=== PATIENT | male | born 1960 | race Caucasian/White ===

== ENCOUNTER → 2021-04-16 14:03 | Outpatient (REF) | payer MEDICARE, MEDICAID, SELFPAY | LOC: ANHLAB 14:03 | PROVIDERS: PCP Family Medicine; Visit Provider Nurse Practitioner | DX: D49.2 Neoplasm of unspecified behavior of bone, soft tissue, and skin (principal) | CPT/HCPCS: 88305 ==

== ENCOUNTER 2022-01-04 12:21 | Emergency (ER) | payer MEDICARE, MEDICAID, SELFPAY ==
[2022-01-04] VITALS (25 sets, daily range): BP systolic 133–156; BP diastolic 66–80; PULSE 63–75; RESP 10–29; TEMP 36.9; O2SAT 94–96
--- NOTE | ~2022-01-04 | XR_ITS ---
EXAMINATION: XR chest 1V portable INDICATION: Cough, upper respiratory infection TECHNIQUE: Portable AP chest at 1240 hours COMPARISON: 12/24/2017 FINDINGS: There is subtle diffuse airspace opacities with more focal opacity seen in the right lung b ase. No pleural effusion or pneumothorax. The cardiomediastinal silhouette is normal. IMPRESSION: 1. Subtle diffuse opacities with more focal opacity seen in the right lung base, consistent with atel ectasis versus pneumonia. Reviewed, dictated and finalized at location A. IMPRESSION: 1. Subtle diffuse opacities with more focal opacity seen in the right lung base , consistent with atelectasis versus pneumonia.
--- NOTE | 2022-01-04 12:18 | ECG_ITS ---
Measurements Intervals [place] Rate: 65 P: 67 AK: 168 QRS: 39 QRSD: 104 T: 202 QT: 390 QTc: 406 Interpretive Statements SINUS RHYTHM Nonspecific ST and T-wave abnormality NO PREVIOUS ECG AVAILABLE FOR COMPARISON Electronically Signed On 01-05-2022 7:06:33 CDT by Matt Whitmore M.D.
[2022-01-04 12:39] LABS: Basophils Percent Auto 0.3 % (0.2-1.2); Eosinophils Absolute Auto 0.2 K/mm3 (0-0.3); Eosinophils Percent Auto 1.4 % (0-4.4); Hematocrit 38.3 % (42.0-52.0); Immature Granulocyte Absolute 0.07 K/mm3 (0.00-0.031); Immature Granulocyte Percent A 0.6 % (0-0.5); Lymphocytes Absolute Auto 1.12 K/mm3 (0.9-3.2); Lymphocytes Percent Auto 9.6 % (18.3-44.2); Mean Corpuscular HGB Conc 33.9 g/dl (32-36); Mean Corpuscular Hemoglobin 32.1 pg (26-34); Mean Corpuscular Volume 94.6 fl (80-100); Mean Platelet Volume 10.5 fl (7.4-10.4); Monocytes Absolute Auto 0.8 K/mm3 (0.1-0.6); Monocytes Percent Auto 6.9 % (2.6-8.5); Neutrophils Absolute Auto 9.5 K/mm3 (1.3-6.7); Neutrophils Percent Auto 81.2 % (45.5-73.1); Platelet Count Result 192 k/mm3 (150-375); Red Blood Count 4.05 M/mm3 (4.6-6.20); Red Cell Distribution Width 12.2 % (11.5-14.5); White Blood Count 11.7 K/mm3 (4.5-10.0)
[2022-01-04 12:57] LABS: Alanine Aminotransferase 40 U/L (6-50); Albumin Level 4.1 g/dL (3.5-5.1); Alkaline Phosphatase 83 U/L (38-126); Anion Gap 11 mmol/L (8-16); Aspartate Amino Transferase 38 U/L (17-59); Bilirubin,Total 0.7 mg/dL (0.2-1.3); Blood Urea Nitrogen 39 mg/dL (9-20); Calcium 8.9 mg/dL (8.4-10.2); Carbon Dioxide 24 mmol/L (22-30); Chloride 99 mmol/L (98-107); Estimated CRCL calculation 81 ml/min; Estimated Glomerular Filt Rate 57; Glucose 217 mg/dL (65-110); Potassium 3.8 mmol/L (3.4-5.0); Sodium 134 mmol/L (137-145)
[2022-01-04 13:21] LABS: Appearance Urine Clear (Clear); Bilirubin Urine Negative (Negative); Blood Urine 1+ (Negative); Color Urine Yellow (Yellow); Glucose Urine UA Trace mg/dL (Negative); Ketones Urine Negative (Negative); Leukocyte Esterase Ur Negative LEU/UL (Negative); Nitrate Urine Negative (Negative); Protein Urine 2+ mg/dL (Negative); Urobilinogen Urine 0.2 mg/dL (<2.0); pH Urine 5.5 (5.0-9.0)
--- NOTE | 2022-01-04 13:26 | ED.GENADULT ---
HPI - General Adult General Chief complaint: Unspecified <Isabel Chahal PA-C - Last Filed: 01/04/22 20:17> Stated complaint: NOT FEELING WELL - POSSIBLE INK EYE/URI <IDA Goodwin Last Filed: 01/04/22 20:17> Time Seen by Provider: 01/04/22 12:43 <Isabel Chahal PA-C - Last Filed: 01/04/22 20:17> Source: patient <IDA Goodwin Last Filed: 01/04/22 20:17> Mode of arrival: EMS <IDA Goodwin Last Filed: 01/04/22 20:17> Limitations: no limitations <IDA Goodwin Last Filed: 01/04/22 20:17> History of Present Illness HPI narrative: Patient is a 61-year-old legally blind male, who presents to the ED with multiple complaints. Patient reports he has been sick for the past 1 week, with bilateral ear pain, sinus pressure/congestion, rhinorrhea, productive cough. He has been seen several times at [facility] and was prescribed a Medrol Dosepak and antibiotic eardrops on 12/30. He reports his symptoms have since persisted. He also developed bilateral eye drainage a couple days ago. Reports chest wall and abdominal pain with coughing. No CP at rest. Positive chills/diaphoresis, but no documented fever. No recent nausea or vomiting. No difficulty breathing. No pain or burning with urination. <IDA Goodwin Last Filed: 01/04/22 20:17> Related Data Home medications: Home Medications Medication Instructions Recorded Confirmed acetaminophen 500 mg tablet 500 mg PO TID PRN 08/22/19 11/13/21 oxcarbazepine 300 mg tablet 300 mg PO .COMPLEX 08/22/19 11/13/21 (Trileptal) atorvastatin 10 mg tablet 10 mg PO DAILY 04/29/21 11/13/21 furosemide 20 mg tablet 20 mg PO QAM 04/29/21 11/13/21 baclofen 10 mg tablet 10 mg PO DAILY 10/07/21 11/13/21 brexpiprazole 2 mg tablet (Rexulti) 2 mg PO DAILY 11/26/21 <Isabel Chahal PA-C - Last Filed: 01/04/22 20:17> Allergies/adverse reactions: Allergies Allergy/AdvReac Type Severity Reaction Status Date / Time levofloxacin Allergy Intermediate Unknown Verified 11/13/21 15:07 gabapentin Allergy Unknown Unknown Verified 11/13/21 15:07 inositol Allergy Unknown Unknown Verified 11/13/21 15:07 morphine Allergy Unknown Unknown Verified 11/13/21 15:07 niacin Allergy Unknown Unknown Verified 11/13/21 15:07 niacinamide Allergy Unknown Unknown Verified 11/13/21 15:07 metformin AdvReac Severe Diarrhea Verified 11/13/21 15:07 ibuprofen AdvReac Mild upset Verified 11/13/21 15:07 stomach with high doses <Isabel Chahal PA-C - Last Filed: 01/04/22 20:17> Review of Systems Review of Systems: CONSTITUTIONAL: Reports chills/diaphoresis. Denies fever. EYES: Reports bilateral discharge. ENT: Reports sinus pressure, rhinorrhea, congestion, sore throat, bilateral otalgia. CARDIOVASCULAR: Reports chest wall pain w/ coughing. RESPIRATORY: Reports productive cough. Denies dyspnea. GASTROINTESTINAL: Reports diffuse ABD pain w/ coughing. Denies nausea, vomiting, or diarrhea. GENITOURINARY: Denies dysuria or hematuria. MUSCULOSKELETAL: Denies back pain. NEUROLOGIC: Denies headache, numbness, or weakness. <Isabel Chahal PA-C - Last Filed: 01/04/22 20:17> All systems reviewed & are unremarkable except as noted in HPI and below <Isabel Chahal PA-C - Last Filed: 01/04/22 20:17> [facility] Past Medical History Medical History: Medical History (Updated 01/05/22 @ 00:01 by Linwood Powers) Depression HTN (hypertension) Bsksbbia-pykr-Kfogy syndrome Legally blind Lumbar spondylosis <Isabel Chahal PA-C - Last Filed: 01/04/22 20:17> Surgical History Surgical History: Surgical History Cataract H/O knee surgery b/l knee replacement 2014 Hx of tonsillectomy Kidney stone <Isabel Chahal PA-C - Last Filed: 01/04/22 20:17> Family History Family History: Family History Sibling D
[2022-01-04 13:29] LABS: RBC Urine 0-2 /hpf (0-2); WBC Urine 0-3 /hpf
[2022-01-04 13:55] LABS: Add Urine Microscopic? YES
--- NOTE | 2022-01-04 15:00 | PC.NURSE ---
Pt reports relief of hearing loss after irrigation.
--- NOTE | 2022-01-15 17:00 | ED.GENADULT ---
HPI - General Adult General Chief complaint: Unspecified Stated complaint: NOT FEELING WELL - POSSIBLE INK EYE/URI Time Seen by Provider: 01/04/22 12:43 Source: patient Mode of arrival: EMS Limitations: no limitations Related Data Home Medications Medication Instructions Recorded Confirmed acetaminophen 500 mg tablet 500 mg PO TID PRN 08/22/19 01/08/22 oxcarbazepine 300 mg tablet 300 mg PO .COMPLEX 08/22/19 01/08/22 (Trileptal) atorvastatin 10 mg tablet 10 mg PO DAILY 04/29/21 01/08/22 furosemide 20 mg tablet 20 mg PO QAM 04/29/21 01/08/22 baclofen 10 mg tablet 10 mg PO DAILY 10/07/21 01/08/22 brexpiprazole 2 mg tablet (Rexulti) 2 mg PO DAILY 11/26/21 01/08/22 Allergies Allergy/AdvReac Type Severity Reaction Status Date / Time levofloxacin Allergy Intermediate Unknown Verified 01/08/22 13:06 gabapentin Allergy Unknown Unknown Verified 01/08/22 13:06 inositol Allergy Unknown Unknown Verified 01/08/22 13:06 morphine Allergy Unknown Unknown Verified 01/08/22 13:06 niacin Allergy Unknown Unknown Verified 01/08/22 13:06 niacinamide Allergy Unknown Unknown Verified 01/08/22 13:06 metformin AdvReac Severe Diarrhea Verified 01/08/22 13:06 ibuprofen AdvReac Mild upset Verified 01/08/22 13:06 stomach with high doses PMFSH Past Medical History Medical History Depression HTN (hypertension) Qplymoeh-ccjz-Yruqu syndrome Legally blind Lumbar spondylosis Surgical History Surgical History Cataract H/O knee surgery b/l knee replacement 2014 Hx of tonsillectomy Kidney stone Family History Family History Sibling Diabetes mellitus Hypertension Asthma Retinitis pigmentosa Wqwhbxyn-yiso-Lvbtc syndrome Father Asthma Family history of arthritis Malignant neoplasm of prostate Family history of cardiovascular disease Diabetes mellitus Mother Family history of cardiovascular disease Acute myocardial infarction, Onset Age: 65 Cerebrovascular accident Hypertension Heart disease Social History Social History Smoking status: Never smoker Second hand tobacco smoke exposure: No Alcohol intake: never Substance use: never Substance use type: does not use Gender identity (if verbalized by the patient): Male Spiritual care concerns: No Agree to blood products: Yes Course Vital Signs Vital signs: Vital Signs Temperature 98.5 F 01/04/22 11:27 Pulse Rate 75 01/04/22 11:27 Respiratory Rate 16 01/04/22 11:27 Blood Pressure 147/72 H 01/04/22 11:27 Pulse Oximetry 95 01/04/22 11:27 Oxygen Delivery Room Air 01/04/22 11:27 Temperature 98.5 F 01/04/22 11:27 Pulse Rate 70 01/04/22 14:17 Respiratory Rate 21 H 01/04/22 16:06 Blood Pressure 152/66 H 01/04/22 15:46 Pulse Oximetry 96 01/04/22 15:20 Oxygen Delivery Room Air 01/04/22 11:27 Medical Decision Making Vital Signs Vital Signs: Vital Signs Temperature 98.5 F 01/04/22 11:27 Pulse Rate 75 01/04/22 11:27 Respiratory Rate 16 01/04/22 11:27 Blood Pressure 147/72 H 01/04/22 11:27 Pulse Oximetry 95 01/04/22 11:27 Oxygen Delivery Room Air 01/04/22 11:27 Temperature 98.5 F 01/04/22 11:27 Pulse Rate 70 01/04/22 14:17 Respiratory Rate 21 H 01/04/22 16:06 Blood Pressure 152/66 H 01/04/22 15:46 Pulse Oximetry 96 01/04/22 15:20 Oxygen Delivery Room Air 01/04/22 11:27 Lab Data Result diagrams: 01/04/22 12:24 01/04/22 12:24 Labs: Lab Results 01/04/22 01/04/22 01/04/22 Range/Units 12:23 12:24 12:24 WBC 11.7 H (4.5-10.0) K/mm3 RBC 4.05 L (4.6-6.20) M/mm3 Hgb 13.0 L (14.0-18.0) g/dL Hct 38.3 L (42.0-52.0) % MCV 94.6 (80-100) fl MCH 32.1 (26-34) p
== END 2022-01-04 16:34 | disposition home or self-care (01) ==
PROVIDERS: Emergency Provider Emergency Medicine; PCP Family Medicine
DX: H60.93 Unspecified otitis externa, bilateral (principal); H66.93 Otitis media, unspecified, bilateral; H60.42 Cholesteatoma of left external ear; H10.89 Other conjunctivitis; I10 Essential (primary) hypertension; H54.8 Legal blindness, as defined in USA; F32.A Depression, unspecified; Z96.653 Presence of artificial knee joint, bilateral; Z98.49 Cataract extraction status, unspecified eye; R91.8 Other nonspecific abnormal finding of lung field; R94.31 Abnormal electrocardiogram [ECG] [EKG]
CPT/HCPCS: 36415; 69209; 71045; 80053; 81001; 85025; 93005; 99283

== ENCOUNTER 2023-12-15 14:15 | Outpatient (RCR) | payer MEDICARE, MEDICAID, SELFPAY ==
--- NOTE | 2023-09-18 18:47 | PTOPEVAL1 ---
Assessment and note entered by Elvira Snyder PT Evaluation Information Assessment Status Evaluation Diagnosis L and R shoulder lesions Therapy conditions pain in bilat shoulders cervicalgia cervical radiculopathy abnormal posture Subjective Information Pt reports his left is worse than the right. Pt reports he had neck surgery January 2023, states his pain has been since this point. Pt reports fusion of C5-6. States hasn't done what it should have done . Dr. Palacios at [facility], has had follow ups and x-rays showing the equipment is fine . Has trigger point injections in his neck and shoulder. States this last one did something to my shoulder . Pt reports shoulder was fine before last injection and had therapy that was a little rough thinks the last injection did something. Reports last shot was above the scapula and hurts below and above the scapula. Reports pain goes down arm and into the 5th and 4th fingers. goes down back of upper arm, through forearm, wrist, and fingers. Neck really hurts too in the back and sides of the neck. Pt had attended therapy at another facility and was referred to this physical therapy facility due to feeling he wasn't making progress States went to other facility a bunch of times for his neck after surgery. For his shoulders he had just started. Pt reports his pain medications are not helping enough. States is taking oxycodone with acetominophen 5/325. Pt reports takes 1-2 every 3 hours. Is not taking NSAIDs, took steroids for a while and that helped with the narcotics but ran out of them. 7 day supply. Ices his neck 3-4x a day maybe more. Reported Pain Level Pain Score 3,8,9: Self Report Assessment PT Clinical Summary Pt presents to evaluation with diagnosis of left and right shoulder lesions. Pt reports he had a cervical fusion of C5-6 in January 2023 and has had neck and shoulder pain since this point. He reports he has followed up with surgeon multiple times who has taken imaging an states the fusion
--- NOTE | 2023-09-18 18:48 | OPREHPOC ---
Outpatient Therapy Plan of Care This is a Multidisciplinary Plan of Care that may contain components documented by all disciplines (PT, OT, and ST.) PT Goal 1 Goal Pt will be independent in HEP Pt will verbalize understanding of diagnosis and prognosis Target Visit 6 PT Problem 2 PT Problem #2 Pain PT Goal 1 Goal Pt will report greatest pain level at 5/10 or less to improve ADLs and activities Target Visit 6 Comment Pt will report greatest pain level at 2/10 or less to improve ADLs and activities PT Goal 2 Target Visit 12 PT Problem 3 PT Problem #3 Impaired Range of Motion PT Goal 1 Goal Pt will demo improved cervical rotation bilat to 30 degrees Target Visit 12 PT Goal 2 Goal Pt will demo cervical extension of 15 degrees Target Visit 12 PT Problem 4 PT Problem #4 Impaired Endurance PT Goal 1 Goal Pt will demo improved forward head in sitting without cueing Target Visit 12
--- NOTE | 2023-10-07 16:42 | PTOPPROG ---
Assessment and note entered by Elvira Snyder, PT Assessment Status Reevaluation Diagnosis L and R shoulder lesions Therapy conditions pain in bilat shoulders cervicalgia cervical radiculopathy abnormal posture Subjective Information Reports heart was out of rhythm. States did not go through a cardioversion. Was in the hospital 4 days. States Is seeing Primary 2 days from now for follow up from hospitalization. He got home on Thursday. Pt reports heart a-fib was up and then slowed way down, then blood pressure shot up. Started on a new blood thinner and new blood pressure medicine. Did EKGs, x-rays, medications. Reports is starting to sleep again after being awakened in the night in the hospital. States LEFT arm is better than it was, that it is the more limiting arm. States had a fall before talking to referring provider, did not have another fall after that. Patient states he feels ok, just tired. Reports seeing Neurosurgeon 10/30/23 Assessment PT Clinical Summary Pt was able to attend one therapy session after evaluation then was hospitalized for unrelated diagnosis. Pt returns to therapy today stating centralization of LUE pain. Reports overall feels some better in the neck but that it still hurts. Was reevaluated today and demo's less UE ROM bilat and increased cervical rotation bilat compared to evaluation. Cont to report high pain levels as well with abnormal postures, decreased ROM cervical and thoracic spine, and (+) tone and tension cervical and thoracic muscles. Plan of Care Interventions Electrical Stimulation,Hot Pack/Cold Pack,Manual Therapy,Neuro Re-education,Patient/Caregiver Educati,Therapeutic Activities,Therapeutic Exercise,Self-Care/Home Management Other Interventions Taping PT Services Indicated Yes Treatment Frequency and 2x weekly x 12 weeks Duration These treatments will address the objective and functional deficits as defined above. The patient will be advanced safely and appropriately in order for the patient to progress towards his/her prior level of function. Additional exercises will be introduced and as well as a comprehensive home exercise program upon discharge, if needed, ?to ensure carryover of functional gains achieved in the clinic. This treatment plan has been reviewed and agreement upon by the patient.
--- NOTE | 2023-11-04 13:40 | PCPTNOTE ---
Patient called & cancelled scheduled appointment this date due to his transportation company cancelling his ride to his appointment due to staffing issues. Cancellation will not be counted against patient attendance.
--- NOTE | 2023-12-01 16:24 | PTOPPROG ---
Assessment and note entered by Elvira Snyder, PT Evaluation Information Assessment Status Progress report Diagnosis L and R shoulder lesions Therapy conditions pain in gaye shoulders cervicalgia cervical radiculopathy abnormal posture Onset 10/2022 Subjective Information Pt states maybe 40% improved overall States is able to lift right arm more than left arm, hurts but not enough to keep me from doing anything . States left fingers don't work and the pinky is kind of limp . Pt currently has a foster care case manager 3 days a week for half a day. Does most of his chores secondary to blindness Pt has been on and off prednisone and pain medication since last reevaluation. Had a recent myelography showing multiple levels of arthritic changes, shows no hardware complications, cervical spine straightening without subluxation, multilevel degenerative changes Pt has recently been on prednisone 10 days, finished this, and gave another 10 days on day one of this round. When is on prednisone it helps pain but continues to have pain in both arms. Is supposed to go see the ortho December 23. Neuro surgeon has not been scheduled yet, but is planning to schedule with him States left arm is getting a little better but not too much. Doesn't subside. Reports does the exercises and everything he can but it still bothers him. States this weekend pain started hurting on Thursday when was really hot outside. Pain in the left arm is going all the way down to the two fingers, states is the entrapment of the nerve. States in the beginning with the surgery they took bone spurs out and if they hadn't could have been paralyzed. States feels ok to do things but just not feeling that great . Sates the pain is about a 6 on the left but an 8 on the right today. Right side states is popping and cracking. Became worse than
--- NOTE | 2023-12-18 12:40 | PCPTNOTE ---
This treatment is being continued on visit number [id number]. Please see documentation on both accounts to view progress. Completed interventions, outcomes, and problems have been marked as Inactive to facilitate the copying of the Care plan routine for recurring accounts.
== END 2023-12-17 23:59 | disposition home or self-care (01) ==
LOC: ANHHIPT 14:15
PROVIDERS: PCP Family Medicine; Visit Provider Family Medicine
DX: M75.82 Other shoulder lesions, left shoulder (principal); M75.81 Other shoulder lesions, right shoulder
CPT/HCPCS: 97014; 97110; 97112; 97140; 97163; 97750; G0283

== ENCOUNTER 2024-01-07 14:00 | Outpatient (RCR) | payer MEDICARE, MEDICAID, SELFPAY ==
--- NOTE | 2023-12-18 12:39 | PCPTNOTE ---
The treatment documented on this account is a continuation of the treatment documented on visit number [id number]. Please see documentation on both accounts to view progress. The Plan of Care has been transitioned and updated within the new V#. I have addressed and agree with the discipline specific Problems, Interventions, and Goals for the current certification period. Completed interventions, outcomes, and problems have been marked as Inactive to facilitate the copying of the Care plan routine for recurring accounts.
--- NOTE | 2024-01-07 15:02 | PTOPDC ---
Assessment and note entered by Elvira Snyder, PT Assessment Status Discharge Diagnosis L and R shoulder lesions Therapy conditions abnormal postures cervical radiculopathy Onset 10/2022 Subjective Information Pt reports has nerve test in January and also a CT scan on neck in January. States is better, but left arm is still painful. Now has a knee that is popping when I stand up . Both left and right shoulder but right shoulder is not like the left one . States left hand is not working right. Prednisone helps some what, but has to sleep with a pillow under left arm. Left arm sometimes it works well, and sometimes it doesn't . Ortho MD provided steroid shots in the shoulders but the steroid shots didn't do anything in the shoulder joint. Pt states ices neck every day when it bothers him, once a day. States helps some while the ice is on there but then when you take the ice off it hurts again. Hurts to turn neck. Is sleeping with one pillow and not sleeping with head very high. Reports he usually does shoulder squeezes, sometimes does the stretches laying on his back depending on how tight the back is usually 2-3x / wk, the goal post does 2-3x daily, open book thoracic rotation once daily, tilting head side to side and turning neck and chin tucks a couple times a day, and stretching neck ear>shoulder. has a bone stimulator that has used 4 hours a day usually 2 hours at a time. Can't wear it 4 hours straight, and tries to get it done every single day. It's heavy and depends on how his neck is doing will do or not perform stimulator. Reported Pain Level Pain Score 6,8,7: Self Report Assessment PT Clinical Summary Pt has attended therapy consistently for neck pain and radiculopathy. Pt's reports of pain remain high in both shoulders, left upper arm, and neck. Pt appears focused on his pain and discomfort, stating he thinks something is wrong related to his neck surgery. He has received multiple doses of prescription prednisone through his plan of care from different providers which he reports improves pain. He had steroid shots in bilateral
== END 2024-01-12 09:46 | disposition home or self-care (01) ==
LOC: ANHHIPT 14:00
PROVIDERS: PCP Nurse Practitioner Family; Visit Provider Family Medicine
DX: M75.82 Other shoulder lesions, left shoulder (principal); M75.81 Other shoulder lesions, right shoulder
CPT/HCPCS: 97014; 97110; 97112; 97140; 97750; G0283

== ENCOUNTER 2024-04-28 10:45 | Outpatient (RCR) | payer MEDICARE, MEDICAID, SELFPAY ==
[2024-03-29 11:20] VITALS: BMI 36.1
[2024-04-07 13:30] VITALS: BMI 36.0
[2024-04-08 11:47] VITALS: BMI 36.0
== END 2024-06-27 09:24 | disposition home or self-care (01) ==
LOC: ANHDMC 10:45
PROVIDERS: PCP Family Medicine; Visit Provider Nurse Practitioner Family
DX: E11.65 Type 2 diabetes mellitus with hyperglycemia (principal); Z71.3 Dietary counseling and surveillance; Z71.89 Other specified counseling
CPT/HCPCS: 97802; 97803; G0108

== ENCOUNTER 2024-07-26 10:45 | Outpatient (RCR) | payer MEDICARE, MEDICAID, SELFPAY ==
[2024-07-11 10:05] VITALS: BMI 35.9
== END 2024-10-09 23:59 | disposition home or self-care (01) ==
LOC: ANHDMC 10:45
PROVIDERS: PCP Nurse Practitioner Family; Visit Provider Nurse Practitioner Family
DX: E11.65 Type 2 diabetes mellitus with hyperglycemia (principal); Z71.3 Dietary counseling and surveillance; Z71.89 Other specified counseling
CPT/HCPCS: 97803; G0108

== ENCOUNTER 2024-11-10 08:44 | Outpatient (CLI) | payer MEDICARE, MEDICAID, SELFPAY ==
--- NOTE | ~2024-11-10 | CT_ITS ---
EXAMINATION: CT sinus wo con DATE: 11/10/2024 09:05 INDICATION: Chronic sinusitis TECHNIQUE: Computed tomography (CT) of the paranasal sinuses was performed without intravenous contra st. The dose-length product was 331.73 mGy-cm. Automated exposure control and iterative reconstructio n technique were employed. COMPARISON: CT dated 01/05/2007 FINDINGS: There is a mucous retention cyst of the left maxillary antrum. There is leftward nasal sept al deviation. There is mild mucosal thickening of the maxillary sinuses. No air-fluid levels. No muco periosteal reaction. The ostiomeatal units are patent. There are bilateral mastoid effusions. IMPRESSION: 1. Mild sinus disease. 2: Leftward nasal septal deviation. 3: Bilateral mastoid effusions. Reviewed, dictated and finalized at location A.
--- OUTSIDE RECORDS SUMMARY | 2024-11-10 08:58 | XMS_ITS | Clinical Summary ---
Author Organization [facility] Address [address] [place] [address] Phone Care Team Providers Care Icu Specialist Name Role Phone Unavailable Primary Care Provider Unavailabl e Medications potassium chloride (KLOR-CON) 20 MEQ CR tablet 1 tab/cap qday 0 07/26/2017 Active aspirin (ST BRANNON) 81 MG EC tablet 1 tab/cap qday 0 07/26/2017 Active sertraline (ZOLOFT) 100 MG tablet 1 tab/cap qday 0 07/26/2017 Active lisinopril (PRINIVIL,ZESTRI L) 40 MG tablet 1 tab/cap qday 0 07/26/2017 Active raNITIdine (ZANTAC) 150 MG tablet 1 tab/cap qday 0 07/26/2017 Active fenofibrate micronized (LOFIBRA) 134 MG capsule 1 tab/cap qday 0 07/26/2017 Active indomethacin (INDOCIN) 25 MG capsule 1 tab/cap qday 0 07/26/2017 Active pregabalin (LYRICA) 75 MG capsule 1 tab/cap bid 0 07/26/2017 Active atorvastatin (LIPITOR) 10 MG tablet 1 tab/cap qday 0 07/26/2017 Active furosemide (LASIX) 40 MG tablet 1 tab/cap bid 0 07/26/2017 Active allopurinol (ZYLOPRIM) 300 MG tablet 1 tab/cap qday 0 07/26/2017 Active Active Problems Problem Noted Date Diagnosed Date Calculus of kidney 10/04/2017 Chronic kidney disease, stage 3 (moderate) 07/26 Gout 07/26/2017 Other hyperlipidemia 07/26/2017 Overview (09/25/2018): Converted unresolved ICD9, potential mismatch. Hypertensive chronic kidney disease with stage 1 through stage 4 chronic kidney disease, or unspecified chronic kidney disease 07/26/2017 Gastro-esophageal reflux disease without esophag itis 07/26/2017 Family History Medical History Relation Comments Kidney disease Neg Hx Kidney stone Neg Hx Social History Tobacco Use Types Packs/Day Years Used Date Smoking Tobacco: Never Alcohol Use Standard Drinks/Week Comments No 0 (1 standard drink = 0.6 oz pur e alcohol) Sex and Gender Information Value Date Recorded Sex Assigned at Not on file Legal Sex Male 10:04 AM MST Gender Identity Not on file Sexual Orientation Not on file Last Filed Vital Signs Vital Sign Reading Time Taken Comments Blood Pressure 138/72 02/18/2018 12:01 AM CDT Pulse - - Temperature 36.6 C (97.8 F) 02/18/2018 12:01 AM CDT Respiratory Rate - - Oxygen Saturation - - Inhaled Oxygen Concentration - - Weight 123 kg (272 lb) 02/18/2018 12:01 AM CDT Height 190.5 cm (6' 3 ) 02/18/2018 12:01 AM CDT Body Mass Index 34 02/18/2018 12:01 AM CDT Plan of Treatment Health Maintenance Due Date Last Done Comments Influenza Vaccine (Season Ended) 2025
--- OUTSIDE RECORDS SUMMARY | 2024-11-10 08:58 | XMS_ITS | Clinical Summary ---
Author Organization [facility] [address] Address [address] [place] [address] Care Team Providers Care News Broadcaster Name Role Phone Matt Campbell MD Primary Care Provider Allergies Active Allergy Reactions Criticality Noted Date Comments Gabapentin Unknown 03/02/2019 Ibuprofen Hives High 11/15/2016 Morphine Nausea and Vomiting Medium 11/15/2016 Niacin Hives High 02/15/2013 Medications allopurinoL (ZYLOPRIM) 300 mg tablet Take by mouth. 8 Active aspirin (ECOTRIN EC) 81 mg Tablet, Delayed Release (E.C.) Take by mouth. 8 Active atorvastatin (LIPITOR) 10 mg tablet Take by mouth. 8 Active OYSTER SHELL + D 250-125 mg-unit per tablet TAKE 1 TABLET BY MOUTH EVERY DAY 0 9 Active ergocalciferol (VITAMIN D2) 50,000 unit capsule TAKE 1 CAPSULE BY MOUTH ONCE WEEKLY ON THURSDAY 1 9 Active fenofibrate micronized (LOFIBRA) 134 mg Capsule Take by mouth. 8 Active furosemide (LASIX) 40 mg tablet Take by mouth. 8 Active HYDROcodone-ac etaminophen (NORCO) 5-325 mg tablet TAKE 1 TABLET BY MOUTH EVERY 6 HOURS NEEDED FOR PAIN. DO NOT EXCEED 4G OF ACETAMINOPHEN IN A DAY 0 9 Active indomethacin (INDOCIN) 25 mg capsule Take by mouth. 8 Active lisinopril (PRINIVIL) 40 mg tablet Take by mouth. 8 Active metFORMIN (GLUCOPHAGE) 500 mg tablet TAKE 1 TABLET BY MOUTH TWICE A DAY WITH MEALS 2 9 Active metoprolol tartrate (LOPRESSOR) 50 mg tablet TAKE 1 & 1/2 TABLETS BY MOUTH TWICE A DAY 2 9 Active OXcarbazepine (TRILEPTAL) 300 mg tablet TAKE 1 TABLET BY MOUTH TWICE A DAY 2 9 Active potassium chloride (KLOR-CON M20) 20 mEq Extended Release tablet Take by mouth. 8 Active pregabalin (LYRICA) 75 mg Capsule Take by mouth. 8 Active raNITIdine (ZANTAC) 150 mg tablet Take by mouth. 8 Active sertraline (ZOLOFT) 100 mg tablet Take by mouth. 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 Lumbar spondylosis 03/01/2019 Cervical spondylosis with myelopathy 03/01/2019 Family History Medical History Relation Name Comments Unknown Father Unknown Mother Unknown Sister x 2 Relation Name Status Comments Father Alive Mother Sister x 2 Alive Social History Tobacco Use Types Packs/Day Years Used Date Smoking Tobacco: Never Alcohol Use Standard Drinks/Week Comments Never 0 (1 standard drink = 0.6 oz pur e alcohol) Sex and Gender Information Value Date Recorded Sex Assigned at Not on file Legal Sex Male 3:31 PM CDT Gender Identity Not on file Sexual Orientation Not on file Occupation Industry Job Start Date Job End Date disabled Not on file Not on file Not on file Last Filed Vital Signs Vital Sign Reading Time Taken Comments Blood Pressure - - Pulse - - Temperature - - Respiratory Rate - - Oxygen Saturation - - Inhaled Oxygen Concentration - - Weight 136.1 kg (300 lb) 03/02/2019 1:18 PM CDT Height 188 cm (6' 2 ) 03/02/2019 1:18 PM CDT Body Mass Index 38.52 03/02/2019 1:18 PM CDT Plan of Treatment Health Maintenance Due Date Last Done Comments DTAP/TDAP/TD VACCINES (1 - Tdap) 1981 COLORECTAL SCREENING 2007 Colorectal Cancer Screening 2007 FIT-DNA Q 3 years 2007 FIT/FOBT Q 1 year 2007 Flex Sig/CT Colonography Q 5 years 2007 ZOSTER VACCINE (1 of 2) 2012 RSV VACCINE (60+ or ) (1 - Risk 60-74 years 1-dose series) 2022 INFLUENZA VACCINE (#1) 2024 Insurance MEDICARE PART A AND B Care Teams News Broadcaster Relationship Specialty Start Date End Date Matt Campbell MD [address] [place] [id number] PCP - General Internal Medicine 02/21/19
--- OUTSIDE RECORDS SUMMARY | 2024-11-10 08:58 | XMS_ITS | Clinical Summary ---
Author Organization [facility] [employer] Address [address] [place] [address] Care Team Providers Care Maintenance Services Dispatcher Name Role Phone Varun Dangelo MD Unavailable [phone] Source Comments [facility],non-owned Affiliates and Associated Physician Practices is amultiple site organization consisting of ambulatory clinics and hospital sitesin [place], [place]. This disclosure is being madepursuant to the Care Everywhere program and may not contain all information available regarding this patient. Last updated 18.[facility] Allergies Active Allergy Reactions Criticality Noted Date Comments Niacin Urticaria 02/15/2013 Medications * Be aware that medications may not be up to date on this document. Alwaysverify current medications with the patient. lisinopril (PRINIVIL; ZESTRIL) 10 MG tablet Take 10 mg by mouth once daily. Active fenofibrate micronized (LOFIBRA) 134 MG capsule Take 134 mg by mouth once daily. Take with largest meal of the day. Active atorvastatin (LIPITOR) 10 MG tablet Take 10 mg by mouth at bedtime. Active sertraline (ZOLOFT) 100 MG tablet Take 100 mg by mouth once daily. Active etodolac (LODINE) 400 MG tablet Take 400 mg by mouth 2 times daily. Instructed patient to stop 1 week before surgery. Active hydrocodone-brenda taminophen (NORCO) 5-325 MG tablet Take 1 Tab by mouth every 8 hours as needed for Pain. 50 Tab 1 3 Active celecoxib (CELEBREX) 200 MG capsule Take 1 Cap by mouth 2 times daily. 60 Cap 0 3 Active Active Problems Problem Noted Date Diagnosed Date Osteoarthrosis involving lower leg 02/15/2013 Overview (10/06/2015): 2015 IMO Updt Social History Tobacco Use Types Packs/Day Years Used Date Smoking Tobacco: Former Smokeless Tobacco: Never Comments:OFF AND ON Alcohol Use Standard Drinks/Week Comments No 0 (1 standard drink = 0.6 oz pur e alcohol) Sex and Gender Information Value Date Recorded Sex Assigned at Not on file Legal Sex Male 12:28 PM CDT Gender Identity Not on file Sexual Orientation Not on file Last Filed Vital Signs Vital Sign Reading Time Taken Comments Blood Pressure - - Pulse - - Temperature - - Respiratory Rate - - Oxygen Saturation - - Inhaled Oxygen Concentration - - Weight 119.3 kg (263 lb) 04/12/2013 10:42 AM CDT Height 188 cm (6' 2 ) 04/12/2013 10:42 AM CDT Body Mass Index 33.77 04/12/2013 10:42 AM CDT Plan of Treatment Health Maintenance Due Date Last Done Comments COLOGUARD (AGES 45-75) - COL ON CA SCREENING 1962 COLON MONITORING 1962 COLONOSCOPY - COLON CA SCREENING 1962 CT COLONOGRAPHY - COLON CA SCREENING 1962 Colorectal Cancer Screening 1962 FIT - COLON CA SCREENING 1962 FLEX SIG - COLON CA SCREENING 1962 HIV SCREENING 1977 HEPATITIS C SCREENING 07/02/1980 DTAP/TDAP/TD VACCINES (1 - Tdap) 1981 PNEUMOCOCCAL VACCINE 50+ (1 of 1 - PCV) 2012 ZOSTER VACCINE (1 of 2) 2012 COVID-19 VACCINE ( - 2023-2 5 season) 2024 DEPRESSION SCREENING 07/13/2024 INFLUENZA VACCINE (Season Ended) 2025 Respiratory Syncytial Virus (RSV) Vaccine Pt: or over 60 yrs (1 - 1-dose 75+ series) 2037 HEPATITIS B VACCINE Aged Out No longe r eligible based on patient's age to complete this topic HIB VACCINE Aged Out No longer eligi ble based on patient's age to complete this topic HPV VACCINE Aged Out No longer eligi ble based on patient's age to complete this topic MENINGOCOCCAL (Group B) VACC INE SHARED DECISION-MAKING Aged Out No longer eligibl e based on patient's age to complete this topic MENINGOCOCCAL GROUPS A/C/Y/W VACCINE Aged Out No longer eligible b ased on patient's age to complete this topic Insurance MEDICARE MEDICARE MEDICAID - OUT OF STATE Care Teams Maintenance Services Dispatcher Relationship Specialty [place] [id number] [place] [address] Orthopedic Surgery 02/15/13
== END 2024-11-10 08:45 | disposition home or self-care (01) ==
PROVIDERS: PCP Nurse Practitioner Family; Visit Provider Otolaryngology
DX: J32.9 Chronic sinusitis, unspecified (principal); J34.2 Deviated nasal septum
CPT/HCPCS: 70486

== ENCOUNTER 2025-03-02 10:45 | Outpatient (CLI) | payer MEDICARE, MEDICAID, SELFPAY ==
--- OUTSIDE RECORDS SUMMARY | 2025-03-02 11:29 | XMS_ITS | Clinical Summary ---
Author Organization [facility] Address [address] [place] [address] Phone Care Team Providers Care Policy Advisor Name Role Phone Unavailable Primary Care Provider [...] 12:01 AM CDT Height 190.5 cm (6' 3) 02/18/2018 12:01 AM CDT Body Mass Index 34 02/18/2018 12:01 AM CDT Plan of Treatment Health Maintenance Due Date Last Done Comments Influenza Vaccine (#1) 2025
--- OUTSIDE RECORDS SUMMARY | 2025-03-02 11:29 | XMS_ITS | Clinical Summary ---
Author Organization [facility] [address] Address [address] [place] [address] Care Team Providers Care Visual Inspector Name Role Phone Matt Campbell MD Primary [...] 1:18 PM CDT Height 188 cm (6' 2) 03/02/2019 1:18 PM CDT Body Mass Index [...] years 1-dose series) 2022 INFLUENZA VACCINE (#1) 2025 Insurance MEDICARE PART A AND B Care Teams Visual Inspector Relationship Specialty Start Date End Date Matt Campbell MD [address] [place] [id number] PCP - General Internal Medicine 02/21/19
--- OUTSIDE RECORDS SUMMARY | 2025-03-02 11:29 | XMS_ITS | Clinical Summary ---
Author Organization [facility] [employer] Address [address] [place] [address] Care Team Providers Care Straightener And Aligner Name Role Phone Varun Dangelo MD Unavailable Source Comments [facility],non-owned Affiliates and Associated Physician Practices is amultiple site organization consisting of ambulatory clinics and hospital sitesin [place], [place], [place] and [place]. This disclosure is being madepursuant to the Care Everywhere program and may not contain all information available regarding this patient. Last updated 18.[facility] Allergies Active Allergy Reactions Criticality Noted Date [...] 10:42 AM CDT Height 188 cm (6' 2) 04/12/2013 10:42 AM CDT Body Mass Index [...] season) 2024 DEPRESSION SCREENING 07/13/2024 INFLUENZA VACCINE (#1) 2025 Respiratory Syncytial Virus (RSV) Vaccine Pt: [...] MEDICAID - OUT OF STATE Care Teams Straightener And Aligner Relationship Specialty [place] [id number] [place] [address] Orthopedic Surgery 02/15/13
--- OUTSIDE RECORDS SUMMARY | 2025-03-02 11:29 | XMS_ITS | Patient Health Record ---
Author Organization [facility] [employer] Address [address] [facility] [address] [place] [address] Care Team Providers Care Moto Mix Operator Name Role Phone Khang Mensah Unavailable [phone] Reason For Referral No Information Plan Of Treatment No Information
== END 2025-03-02 10:46 | disposition home or self-care (01) ==
LOC: ANHAUDIO 10:45
PROVIDERS: PCP Nurse Practitioner Family; Visit Provider Otolaryngology
DX: H90.3 Sensorineural hearing loss, bilateral (principal); R42 Dizziness and giddiness; Z96.22 Myringotomy tube(s) status; H93.13 Tinnitus, bilateral; H74.8X2 Other specified disorders of left middle ear and mastoid; H93.8X3 Other specified disorders of ear, bilateral; Z82.2 Family history of deafness and hearing loss
CPT/HCPCS: 92557; 92567